=== PATIENT | male | born 1995 | race Caucasian/White ===

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

== ENCOUNTER 2021-11-02 08:36 | Emergency (ER) | payer OTHER ==
[~2021-11-02 08:36] MED LIST: BENTYL 20MG TAB20 MG PO; ZOFRAN ODT 4 MG4 MG SL
[2021-11-02 09:34] LABS: HEMOGLOBIN 14.8 gm/dl (14.0-17.5); RED BLOOD COUNT 5.09 M/UL (4.20-5.50)
[2021-11-02 09:38] LABS: WHITE BLOOD COUNT 6.6 K/UL (4.5-11.0)
[2021-11-02 10:33] LABS: BUN/CREATININE RATIO 11 (0-10)
[2021-11-02] MEDS ORDERED: HYDROCODON-ACE1 EAC2 PO (10:56)
== END 2021-11-02 11:50 | disposition home or self-care (01) ==
LOC: ER1 08:36
PROVIDERS: Emergency Medicine
DX: N13.2 Hydronephrosis with renal and ureteral calculous obstruction (principal); R94.5 Abnormal results of liver function studies
CPT/HCPCS: 80053; 81001; 85025; 96374; 96375; 99284; J1885; J2270; J2405